=== PATIENT | male | born 1980 | race Caucasian/White ===

== ENCOUNTER 2017-05-18 18:13 | Emergency (ER) | payer OTHER ==
[~2017-05-18] VITALS: Ht 167.6 cm; Wt 64.0 kg
[2017-05-18 18:22] VITALS: Ht 167.6 cm; Wt 64.0 kg
[2017-05-18] MEDS ORDERED: MUPI22OI2 TOP (20:21)
--- NOTE | 2017-05-18 20:21 | ERD ---
ER Documentation Chief Complaint Date/Time DATE: 05/18/17 TIME: 20:12 Chief Complaint scaterred body rashes HPI This 37-year-old male patient presents to emergency department for evaluation of bug bites. Patient reports that he reports that his house has been fumigated , patient reports that today 100s of black chiggers fell from his groin, and that he also has carpet Beadles. ROS All systems reviewed and are negative except as per history of present illness. Medications Home Meds Active Scripts Mupirocin* (Bactroban*) 2% -22 Gram Oint...g., 1 APPLIC TOP TID, #1 TUB SITE OF APPLICATION: Prov:IKE,MELODY 05/18/17 Allergies Allergies: Coded Allergies: No Known Allergy (Unverified , 05/18/17) PMhx/Soc History of Surgery: Yes (SPINAL CORD INJURY SX 2009) Anesthesia Reaction: No Hx Neurological Disorder: Yes (NEUROPATHY) Hx Respiratory Disorders: No Hx Cardiac Disorders: No Hx Psychiatric Problems: Yes (ADHD, ANXIETY) Hx Miscellaneous Medical Probl: Yes (C-DIFF, MRSA TO WOUNDS) Hx Alcohol Use: No Hx Substance Use: No Hx Tobacco Use: No Smoking Status: Never smoker Physical Exam Vitals Vital Signs Date Time Temp Pulse Resp B/P Pulse Ox O2 Delivery O2 Flow Rate FiO2 05/18/17 18:22 97.3 88 20 140/87 100 Vitals stable, nursing notes reviewed Physical Exam Const: Well-nourished, no acute distress Head: Eyes: Normal Conjunctiva PERRLA, EOMI ENT: Normal External Ears, Nose and Mouth mucous membranes moist. Neck: Resp: Respirations even and unlabored no respiratory distress Cardio: Abd: Skin: Multiple papules on erythematous bases, papules have been scratched, open and scabbed, no bruising. Patient's hands presents with fissure skin around the nails. Acne noted on forehead. Back: Ext: Neur: Awake and alert Psych: Obsessive, frenetic, flight of ideas with poor concentration, patient speech is clear and he is not on hospital nonthreatening. Procedures/MDM This 77-year-old male patient presents to emergency department for evaluation of insect bites and skin infection. Patient is frenetic, jittery, and picking at his skin, appears obsessive, is my opinion patient is under the influence of illegal substance. Patient reports that he is treated for anxiety and has prescription for Adderall that calms his anxiety symptoms. Patient is not hostile, and follows commands. I have low suspicion for infestation, cellulitis , patient has history of MRSA and C. difficile last treated less than 3 months ago. 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 Return to emergency department for worsening of symptoms, such as increased redness, discharge from scabbed lesions, fever, chills. I feel the patient is stable for discharge at this time. I have discussed results , examination findings, the treatment plan with the patient and family present prior to discharge. Indications for emergent reevaluation, side effects of medication were also discussed. All questions were answered. Patient verbalizes understanding and agrees with plan of care. Departure Diagnosis: Primary Impression: Insect bite Encounter type: initial encounter Qualified Code: W57.XXXA - Insect bite, initial encounter Additional Impressions: Staph skin infection Hx MRSA infection Hx of Clostridium difficile infection Patient Instructions: Insect Bite, Mrsa Skin Infection, Suspected Or Confirmed Additional Instructions: Thank you for for coming to [facility] for your care today. Please ask your nurse or provider if you have questions about your care today and do not leave until all your questions have been answered. Please use any medications given as directed and follow-up with your doctor (or the doctor you were referred to) in the next 2-3 days. If you do not have a primary care doctor you may follow up at the [facility] [place] (listed below). You may also use motrin and tylenol as needed for fever and/or pain unless instructed otherwise by your provider or nurse. Indications for more urgent follow-up have been discussed, but you may return to the Emergency Department at ANY time for any worrisome or worsening symptoms. If you have abdominal pain, please know that no test or exam you received is perfect and you should follow up within 8 hours for continued pain. If you had any imaging studies today, such as an X-Ray or CT Scan, these studies will be reviewed later by a radiologist. You will be called if there are important findings that were not identified today, so make sure the contact information you provided at registration is correct. If you received any narcotic pain control medicine today, such as Vicodin, Morphine or Dilaudid, your coordination and judgment may be affected for a number of hours. Please do not drive or operate heavy machinery, and you may want someone to assist you at home. If you were given a prescription for narcotic medication, be aware that it is very addictive- use sparingly and only if necessary. BENJA RAMIRES May 18, 2017 20:20
== END 2017-05-18 20:10 | disposition home or self-care (01) ==
LOC: FTE 18:13
DX: S30.861A Insect bite (nonvenomous) of abdominal wall, initial encounter (principal); A49.02 Methicillin resistant Staphylococcus aureus infection, unspecified site; L08.89 Other specified local infections of the skin and subcutaneous tissue; W57.XXXA Bitten or stung by nonvenomous insect and other nonvenomous arthropods, initial encounter; Y92.9 Unspecified place or not applicable
CPT/HCPCS: 99283